=== PATIENT | female | born 1975 | race Caucasian/White ===

== ENCOUNTER 2016-11-15 13:13 | Emergency (ER) | payer MEDICARE, OTHER ==
[~2016-11-15] VITALS: Wt 53.2 kg
[~2016-11-15 13:13] MED LIST: FOLI-49; [UNRECOGNIZED DRUG - CODE]
[2016-11-15 14:30] LABS: URINE BLOOD (Dip) POC Trace-intact (NEGATIVE)
[2016-11-15 14:40] LABS: ADD SCAN DIFF NO
[2016-11-15 14:48] LABS: BASOPHILS % 0.1 % (0.0-2.0); EOSINOPHILS # 0.1 10^3/ul (0.0-0.5); EOSINOPHILS % 0.7 % (0.0-7.0); HEMATOCRIT 34.4 % (37.0-47.0); HEMOGLOBIN 12.1 g/dl (12.0-16.0); LYMPHOCYTES % 29.4 % (15.0-51.0); MEAN CORPUSCULAR HGB CONC 35.2 g/dl (32.0-37.0); MEAN PLATELET VOLUME 9.6 fl (7.4-10.4); MONOCYTE # 0.7 10^3/ul (0.3-0.9); MONOCYTES % 10.8 % (0.0-11.0); NEUTROPHIL # 3.9 10^3/ul (1.6-7.5); NEUTROPHILS % 58.6 % (39.0-77.0); PLATELET COUNT 283 10^3/UL (140-415); RED BLOOD COUNT 3.78 10^6/ul (4.20-5.40); RED CELL DISTRIBUTION WIDTH 14.5 % (11.5-14.5); WHITE BLOOD COUNT 6.7 10^3/ul (4.8-10.8)
[2016-11-15 14:56] LABS: ADD UMIC YES; UR ASCORBIC ACID NEGATIVE (NEGATIVE); UR BILIRUBIN (Dip) NEGATIVE (NEGATIVE); UR BLOOD (Dip) 1+ mg/dL (NEGATIVE); UR CLARITY CLEAR (CLEAR); UR COLOR YELLOW (YELLOW); UR GLUCOSE (Dip) NEGATIVE (NEGATIVE); UR KETONES (Dip) NEGATIVE (NEGATIVE); UR LEUKOCYTE ESTERASE (Dip) 2+ Leu/ul (NEGATIVE); UR MUCUS FEW /HPF (NONE SEEN); UR NITRITE (Dip) NEGATIVE (NEGATIVE); UR RBC 0 /HPF (0-5); UR SPECIFIC GRAVITY (Dip) 1.017 (1.003-1.030); UR SQUAMOUS EPITHELIAL CELL FEW /HPF (FEW); UR TOTAL PROTEIN (Dip) NEGATIVE (NEGATIVE); UR UROBILINOGEN (Dip) NEGATIVE (NEGATIVE)
--- NOTE | 2016-11-15 15:32 | RADRPT ---
PROCEDURE: OB Ultrasound. CLINICAL INDICATION: Positive test. Vaginal bleeding. TECHNIQUE: Ultrasound of the pelvis was performed with transabdominal and transvaginal sonography in the axial and sagittal planes. COMPARISON: No prior study is available for comparison. FINDINGS: There is a single intrauterine gestational sac. pole and yolk sac are present. There is heart motion. heart rate is 121 beats per minute. [place]-rump length is 0.51 cm. Mean sac diameter is 2.22 cm. There is a small subchorionic hemorrhage. Multiple fibroids are prese nt in the uterus with the largest measuring 2.6 x 2.5 x 3.7 cm. Menstrual age by ultrasound dates is 6 weeks 5 days. This indicates an expected date of delivery of 07/06/2017. The right ovary appears normal measuring 2.9 x 2.5 x 3.6 cm. The left ovary appears normal measuring 2.1 x 1.4 x 1.7 cm. Color Doppler and pulsed Doppler sonography demonstrate normal flow to the ovaries. There is no other pelvic mass or free fluid. IMPRESSION: 1. Single live intrauterine gestation of 6 weeks 5 days menstrual age by ultrasound dates. 2. Expected date of delivery is 07/06/2017. 3. Multiple fibroids in the uterus with the largest measuring 3.7 cm. 4. Small subchorionic hemorrhage. RPTAT: QQ .Adis Donahue MD, Date Time Electronically viewed and signed by .Adis Donahue MD, on 11/15/2016 15:31 .R/
[2016-11-15] MEDS ORDERED: NITR-58 PO (16:02)
--- NOTE | 2016-11-15 16:02 | ERD ---
ER Documentation Chief Complaint Date/Time DATE: 11/15/16 TIME: 16:01 Chief Complaint , Vaginal bleeding HPI The patient is a 40-year-old female, A0, who presents to the Emergency Department with complaint of vaginal bleeding. The patient notes that last week she missed her menstrual period, and therefore took a test at home, which was noted to be positive. She then called her [facility] for an appointment, which was scheduled for this upcoming Saturday. She believes that she is approximately 4 weeks . The patient reports that at 3:00 am this morning, after using the restroom, she noted a small amount of spotting with light pink blood on the toilet paper when wiping. She notes that she has continues to have spotting since. She denies any passage of large clots or tissue. Denies abdominal pain, pelvic pain or cramping. She admits to urinary frequency and urgency, though believes this to be secondary to her state. Otherwise, denies hematuria, flank pain, fevers, sweats, chills, nausea, vomiting. Denies any other complaints at this time. ROS All systems reviewed and are negative except as per history of present illness. Medications Home Meds Active Scripts Nitrofurantoin Monohyd Macrocr* (Macrobid*) 100 Mg Capsr, 100 MG PO BID for 7 Days, CAP Prov:ROSEANNA SCOTT PA-C 11/15/16 Reported Medications Folic Acid* (Folic Acid*) 1 Mg Tablet 11/12/09 Prednisolone (Prednisolone) 5 Mg Tablet 11/12/09 Allergies Allergies: Coded Allergies: No Known Allergies (Verified Allergy, Mild, 06/04/10) PMhx/Soc History of Surgery: Yes (BILAT HAND SX, CHOLECYSTECTOMY) Anesthesia Reaction: No Hx Neurological Disorder: No Hx Respiratory Disorders: No Hx Cardiac Disorders: No Hx Psychiatric Problems: No Hx Miscellaneous Medical Probl: Yes (RA) Hx Alcohol Use: No Hx Substance Use: No Hx Tobacco Use: No Smoking Status: Never smoker Physical Exam Vitals Vital Signs Date Time Temp Pulse Resp B/P Pulse Ox O2 Delivery O2 Flow Rate FiO2 11/15/16 16:08 98.0 73 18 115/74 100 Room Air 11/15/16 13:15 98.0 88 20 147/78 100 Physical Exam Const: Well-developed, well-nourished, in no acute distress. Head: Normocephalic. Atraumatic Eyes: Normal Conjunctiva ENT: Normal External Ears, Nose and Mouth. Neck: Supple. Full range of motion. Resp: Clear to auscultation bilaterally Cardio: Regular rate and rhythm, no murmurs Abd: Soft, non tender, non distended. Normal bowel sounds Skin: No petechiae or rashes Back: No midline or flank tenderness Ext: No cyanosis, or edema Neur: Awake and alert Psych: Normal Mood and Affect Result Diagram: 11/15/16 1431 Results 24 hrs Laboratory Tests Test 11/15/16 14:30 11/15/16 14:31 11/15/16 14:36 Urine Color YELLOW Urine Clarity CLEAR Urine pH 7.0 Urine Specific Emerson 1.017 Urine Ketones NEGATIVEmg/dL Urine Nitrite NEGATIVEmg/dL Urine Bilirubin NEGATIVEmg/dL Urine Urobilinogen NEGATIVEmg/dL Urine Leukocyte Esterase 2+Tony/ul Urine Microscopic RBC 0/HPF Urine Microscopic WBC 4/HPF Urine Squamous Epithelial Cells FEW/HPF Urine Mucus FEW/HPF Urine Hemoglobin 1+mg/dL Urine Glucose NEGATIVEmg/dL Urine Total Protein NEGATIVEmg/dl White Blood Count 6.710^3/ul Red Blood Count 3.7810^6/ul Hemoglobin 12.1g/dl Hematocrit 34.4% Mean Corpuscular Volume 91.0fl Mean Corpuscular Hemoglobin 32.0pg Mean Corpuscular Hemoglobin Concent 35.2g/dl Red Cell Distribution Width 14.5% Platelet Count 47026^3/UL Mean Platelet Volume 9.6fl Neutrophils % 58.6% Lymphocytes % 29.4% Monocytes % 10.8% Eosinophils % 0.7% Basophils % 0.1% Neutrophils # 3.910^3/ul Lymphocytes # 2.010^3/ul Monocytes # 0.710^3/ul Eosinophils # 0.110^3/ul Basophils # 0.010^3/ul Nucleated Red Blood Cells # 0.010^3/ul Beta HCG, Quantitative 206449.0mIU/ml Bedside Urine pH (LAB) 7.0 Bedside Urine Protein (LAB) Negative Bedside Urine Glucose (UA) Negative Bedside Urine Ketones (LAB) Negative Bedside Urine Blood Trace-intact Bedside Urine Nitrite (LAB) Negative Bedside Urine Leukocyte Esterase (L 1+ Procedures/MDM DIAGNOSTIC TESTS AND INTERPRETATION: PROCEDURE: OB Ultrasound. CLINICAL INDICATION: Positive test. Vaginal bleeding. TECHNIQUE: Ultrasound of the pelvis was performed with transabdominal and transvaginal sonography in the axial and sagittal planes. COMPARISON: No prior study is available for comparison. FINDINGS: There is a single intrauterine gestational sac. pole and yolk sac are present. There is heart motion. heart rate is 121 beats per minute. North-rump length is 0.51 cm. Mean sac diameter is 2.22 cm. There is a small subchorionic hemorrhage. Multiple fibroids are present in the uterus with the largest measuring 2.6 x 2.5 x 3.7 cm. Menstrual age by ultrasound dates is 6 weeks 5 days. This indicates an expected date of delivery of 07/06/2017. The right ovary appears normal measuring 2.9 x 2.5 x 3.6 cm. The left ovary appears normal measuring 2.1 x 1.4 x 1.7 cm. Color Doppler and pulsed Doppler sonography demonstrate normal flow to the ovaries. There is no other pelvic mass or free fluid. IMPRESSION: 1. Single live intrauterine gestation of 6 weeks 5 days menstrual age by ultrasound dates. 2. Expected date of delivery is 07/06/2017. 3. Multiple fibroids in the uterus with the largest measuring 3.7 cm. 4. Small subchorionic hemorrhage. .Adis Donahue MD, MD Date Time Electronically viewed and signed by .Adis Donahue MD, MD on 11/15/2016 15:31 MEDICAL DECISION MAKING: The possibility of threatened was discussed with the patient and she was told to follow up with her [facility] within 2-3 days for re-evaluation. The patient complies and agrees with plan. This is a 40-year-old female presenting to the Emergency Department complaining of vaginal bleeding. She had no significant abnormalities noted on physical examination. Vital signs were normal. Differential diagnosis includes, but is not limited to, ectopic , cervicitis, fibroids, molar , implantation bleeding, heterotopic , septic , missed , incomplete , inevitable , threatened , complete , coagulopathy, fibroids, adenomyosis, endometriosis, neoplasia, vaginitis, PID, vaginal trauma, dysfunctional uterine bleeding. No significant abnormalities were noted on testing ordered. Beta hCG is 142,850. Rh (+), no indication for RhoGAM.. Urinalysis revealed 2+ urine leukocyte esterase with 1+ urine hemoglobin, suggesting acute cystitis with hematuria. Ultrasound performed revealed an intrauterine gestation of 6 weeks 5 days. After rest, the patient reports no new complaints. Upon review and interpretation of the patient's presentation and overall ER course, I believe the patient's symptoms are most consistent with threatened , vaginal bleeding during early and urinary tract infection. At this time the patient patient is in stable condition with and therefore she be discharged home with prescription for Macrobid and strict return precautions for signs of deteriorating or worsening condition. The patient is advised to follow up with her [facility] within 2-3 days for repeat beta hCG testing, reevaluation and further management, or return to the ER sooner for any worsening symptoms. I shared all laboratory and diagnostic imaging studies with the patient at length and in great detail, and the patient verbally understands and agrees with the plan for further observation and care as an outpatient. At the time of discharge, all questions were answered. Departure Diagnosis: Primary Impression: Vaginal bleeding in patient at less than 20 weeks gestation Additional Impressions: Threatened Urinary tract infection Urinary tract infection type: acute cystitis Hematuria presence: with hematuria Qualified Code: N30.01 - Acute cystitis with hematuria Condition: Stable Patient Instructions: Bleeding During Early , Possible Miscarriage ( Threatened ), Understanding Urinary Tract Infections (UTIs) Additional Instructions: Llame al doctor MAANA y nazia channing RAJWINDER PARA DENTRO DE 2-3 SALAS.Dgale a la secretaria que nosotros le instruimos hacer esta rajwinder.Avise o llame si jane condicin se empeora antes de la rajwinder. Regresa aqui si peor o no mejor. ROSEANNA SCOTT PA-C Nov 15, 2016 16:02
[2016-11-15 16:08] VITALS: BP 115/74; PULSE 73; RESP 18; TEMP 98
[2016-11-24 16:16] LABS: URINE BLOOD (Dip) POC Trace-intact (NEGATIVE)
== END 2016-11-15 16:10 | disposition home or self-care (01) ==
LOC: FTE 13:13
DX: O20.0 Threatened abortion (principal); O23.11 Infections of bladder in pregnancy, first trimester; Z3A.01 Less than 8 weeks gestation of pregnancy
CPT/HCPCS: 36415; 76801; 76817; 81001; 81003; 84702; 85025; 86900; 86901

== ENCOUNTER 2016-12-09 18:18 | Emergency (ER) | END 2016-12-09 20:46 | disposition home or self-care (01) | DX: O23.41 Unspecified infection of urinary tract in pregnancy, first trimester (principal); M25.552 Pain in left hip; Z3A.10 10 weeks gestation of pregnancy ==